=== PATIENT | male | born 1975 | race Caucasian/White ===

== ENCOUNTER 2017-03-13 14:27 | Emergency (ER) | payer OTHER, SELFPAY ==
[~2017-03-13] VITALS: Ht 175.3 cm; Wt 104.5 kg
[2017-03-13] MEDS ORDERED: IBUP-1114 PO (14:38)
[2017-03-13] MEDS ORDERED: KETOROLAC 60 MG/2 ML VIAL (J1885) IM ONE (17:30)
[2017-03-13] MEDS ORDERED: ROBA500T PO (18:34)
[2017-03-13] MEDS ORDERED: IBUP-1022 PO (18:34)
[2017-03-13] MEDS ORDERED: PERC5TAB12 PO (18:34)
[2017-03-13] MEDS ORDERED: PERCOCET 5MG/325MG TAB PO ONE (18:45)
[2017-03-13 19:04] VITALS: BP 146/101
== END 2017-03-13 19:06 | disposition home or self-care (01) ==
LOC: M ED 14:27
DX: M62.830 Muscle spasm of back (principal); F17.200 Nicotine dependence, unspecified, uncomplicated
CPT/HCPCS: 96372; 99282; J1885; J3360